=== PATIENT | male | born 1960 | race Caucasian/White ===

== ENCOUNTER → 2017-04-25 | Outpatient (CLI) | payer BC ==
--- NOTE | 2017-04-25 09:40 | FL ---
EXAMINATION TYPE: FL barium swallow DATE OF EXAM: 04/25/2017 CLINICAL HISTORY: Dysphagia TECHNIQUE: A double contrast esophagram is performed utilizing air and barium. A total of 2 minutes and 12 seconds of fluoroscopic time was utilized during procedure. COMPARISON: 11/12/2014 FINDINGS: The esophagus shows normal motility and emptying into the stomach in the gravity dependent position. However, in the gravity independent position there is stasis at the distal esophagus just p roximal to the gastroesophageal junction with delayed and emptying into the gastric fundus. Delayed m otility of approximately 1 to 3 seconds before emptying into the gastric fundus in the supine positio n with more severe delayed motility the lateral position as there is no propulsion through the gastro esophageal junction. Patient was then placed in the upright position and contrast readily flowed thro ugh the gastroesophageal junction with no evidence of stricture. No tertiary contractions were seen. No gastroesophageal reflux was present, however the incompletely passed contrast did spontaneously re fluxed to the level of the cervical esophagus in the gravity independent position. No evidence of hia chelsea hernia or stricture noted. IMPRESSION: 1. No evidence of stricture, extrinsic compression or hiatal hernia. No evidence of gastroesophageal reflux. 2. Delayed motility through the gastroesophageal junction in the gravity independent position with st asis and spontaneous reflux to the level of the cervical esophagus of the contrast that would not pas s through the gastroesophageal junction in the gravity independent portion of the exam.
== END ==
LOC: RADFLMAIN 07:46
PROVIDERS: ATTEND Surgery
DX: K21.9 Gastro-esophageal reflux disease without esophagitis (principal)
CPT/HCPCS: 74220

== ENCOUNTER 2017-05-05 07:48 | Day surgery (SDC) | payer BC ==
[2017-05-03 11:51] VITALS: BMI 27.0
[~2017-05-05 07:48] MED LIST: LACTATED RINGERS 1,000 ML IV SCH; LIDOCAINE 1% 20 ML VIAL (10MG/ML) FOR IV START INTRADERMA PRN
[2017-05-05 08:07] VITALS: RESP 16; TEMP 96.5
[2017-05-05] MEDS ORDERED: PROPOFOL 10 MG/ML 20 ML VIAL IV ONE (08:38)
--- NOTE | 2017-05-05 08:58 | P.GSHP ---
History of Present Illness H&P Date: 05/05/17 Chief Complaint: Diarrhea This is a 56-year-old male referred from Dr. Rossi. Patient has had complaints of diarrhea. He presents today for colonoscopy. Past Medical History Past Medical History: Atrial Fibrillation, Cancer, Thyroid Disorder Additional Past Medical History / Comment(s): FREQUENT DIARRHEA, HX OF THYROID CA, HX OF DIVERTICULOSIS, PAST HX OF AFIB, HAS HAD 8 OCCURANCES FROM [id number] , NONE SINCE. WAS REVERSED WITH MEDS, TINNITUS LEFT EAR History of Any Multi-Drug Resistant Organisms: None Reported Past Surgical History: Cholecystectomy, Hernia Repair, Orthopedic Surgery Additional Past Surgical History / Comment(s): SOLEDAD FUNDLAPLICATION, CARPAL TUNNEL RT. LEFT SHOULDER BICEP, TOTAL THYROIDECTOMY, HEMMOROIDECTOMY, ALFRED INGUINAL HERNIA Past Anesthesia/Blood Transfusion Reactions: Postoperative Nausea & Vomiting ( PONV) Smoking Status: Former smoker - Past Family History Brother(s) Family Medical History: Cancer Additional Family Medical History / Comment(s): PROSTATE Medications and Allergies Home Medications Medication Instructions Recorded Confirmed Type Levothyroxine Sodium [Synthroid] 125 mcg PO DAILY 11/17/15 05/05/17 History Allergies Allergy/AdvReac Type Severity Reaction Status Date / Time amoxicillin Allergy Rash/Hives Verified 05/05/17 08:11 azithromycin [From Zithromax] Allergy Unknown Verified 05/05/17 08:11 Cephalosporins Allergy Rash/Hives Verified 05/05/17 08:11 codeine Allergy Dyspnea Verified 05/05/17 08:11 erythromycin base Allergy Rash/Hives Verified 05/05/17 08:11 latex Allergy Rash/Hives Verified 05/05/17 08:11 morphine Allergy Dyspnea Verified 05/05/17 08:11 Surgical - Exam Vital Signs Temp Pulse Resp BP Pulse Ox 96.5 F L 75 16 146/82 98 05/05/17 08:06 05/05/17 08:06 05/05/17 08:06 05/05/17 08:06 05/05/17 08:06 - General well developed, no distress - Eyes PERRL - ENT normal pinna - Neck no masses - Respiratory normal expansion - Cardiovascular Rhythm: regular - Abdomen Abdomen: soft, non tender Assessment and Plan Plan: Diarrhea Change in bowel habits We'll perform colonoscopy
--- NOTE | 2017-05-05 09:10 | P.OP ---
Date of Procedure: 05/05/17 Preoperative Diagnosis: Diarrhea Change in bowel habits Postoperative Diagnosis: Normal colonoscopy Rectal biopsy pathology pending Procedure(s) Performed: Colonoscopy Implants: Anesthesia: MAC Surgeon: Joseph Swanson Pathology: other (Rectum) Condition: stable Disposition: PACU Indications for Procedure: Operative Findings: Description of Procedure: PROCEDURE: The patient was placed on the endoscopy table in the lateral position. Digital rectal examination was performed which revealed no abnormalities. The prostate was symmetrical without nodules. Flexible colonoscope was then placed in the patient's anus and passed throughout the entire colon. The ileocecal valve was visualized. The cecum, ascending, transverse, descending and sigmoid colon were normal. The rectum was normal as well. Due to the patient's symptoms of diarrhea. A biopsy of the rectum was performed. There were no masses, polyps or diverticula noted in the entire colon. SUMMARY OF FINDINGS: Normal colonoscopy. Rectal biopsy pathology pending
[2017-05-05 09:11] VITALS: PULSE 68
[2017-05-05 09:28] VITALS: BP 127/71
== END 2017-05-05 09:43 | disposition home or self-care (01) ==
LOC: ORWHC2ENDO 07:48
PROVIDERS: ATTEND Surgery
DX: R19.7 Diarrhea, unspecified (principal); E07.9 Disorder of thyroid, unspecified; Z87.891 Personal history of nicotine dependence; Z85.850 Personal history of malignant neoplasm of thyroid; Z79.899 Other long term (current) drug therapy; Z88.5 Allergy status to narcotic agent; Z88.0 Allergy status to penicillin; Z88.1 Allergy status to other antibiotic agents; Z91.040 Latex allergy status
CPT/HCPCS: 88305; 45380; J2704

== ENCOUNTER → 2018-10-20 | Outpatient (CLI) | payer BC ==
--- NOTE | 2018-10-20 15:44 | FL ---
EXAMINATION TYPE: FL barium swallow DATE OF EXAM: 10/20/2018 COMPARISON: 04/25/2017 HISTORY: Post Mykel fundoplication, increasing reflux TECHNIQUE: A double air contrast UGI study is performed. FINDINGS: Esophagus dilates to normal caliber has normal contour to the gastroesophageal junction. Esophageal j unction tapers normally through the expected Mykel fundoplication. There is some mild hesitancy of c ontrast passing through the Mykel fundoplication area. Complete emptying does occur. A few tertiary contractions were observed during the exam. There is incomplete stripping in the horizontal drinking position. IMPRESSIONS: 1. Mykel fundoplication appears intact with some hesitancy passing through the gastroesophageal junc tion.
== END | disposition home or self-care (01) ==
LOC: RADFLWHC 08:22
PROVIDERS: ATTEND Surgery
DX: K21.9 Gastro-esophageal reflux disease without esophagitis (principal); Z98.890 Other specified postprocedural states
CPT/HCPCS: 74220

== ENCOUNTER → 2018-10-25 | Day surgery (SDC) | payer BC ==
[2018-10-20 10:44] VITALS: BMI 27.3
[~2018-10-25] MED LIST changes: +LABETALOL 5 MG/ML VIAL MDV IVP ONE; +LIDOCAINE 1% INJ 10MG/ML (20 ML MDV) ONE; +PROPOFOL 10 MG/ML 20 ML VIAL IV ONE
[2018-10-25 08:51] VITALS: RESP 18; TEMP 974
--- NOTE | 2018-10-25 09:38 | P.GSHP ---
History of Present Illness H&P Date: 10/25/18 Chief Complaint: GERD This is a 58-year-old male who's had some complaints of GERD. Patient presents today for EGD. His recent esophagram shows no evidence of recurrent hiatal hernia. Past Medical History Past Medical History: Atrial Fibrillation, Cancer, GERD/Reflux, Thyroid Disorder Additional Past Medical History / Comment(s): PAC arrhythmia, thryoid cancer History of Any Multi-Drug Resistant Organisms: None Reported Past Surgical History: Cholecystectomy, Hernia Repair, Orthopedic Surgery, Tonsillectomy Additional Past Surgical History / Comment(s): daryl fundoplication, thyroidectomy, rt carpal tunnel, Past Anesthesia/Blood Transfusion Reactions: Postoperative Nausea & Vomiting ( PONV) Smoking Status: Former smoker - Past Family History Father Family Medical History: Cancer Additional Family Medical History / Comment(s): MELENOMA Brother(s) Family Medical History: Cancer Medications and Allergies Home Medications Medication Instructions Recorded Confirmed Type Levothyroxine Sodium [Synthroid] 125 mcg PO DAILY 11/17/15 10/25/18 History Propranolol [Inderal] 10 mg PO DAILY 10/20/18 10/25/18 History Allergies Allergy/AdvReac Type Severity Reaction Status Date / Time amoxicillin Allergy Rash/Hives Verified 10/20/18 10:33 azithromycin [From Zithromax] Allergy Rash/Hives Verified 10/20/18 10:33 Cephalosporins Allergy Rash/Hives Verified 10/20/18 10:33 codeine Allergy Dyspnea Verified 10/20/18 10:33 erythromycin base Allergy Rash/Hives Verified 10/20/18 10:33 hydromorphone [From Dilaudid] Allergy Nausea & Verified 10/20/18 10:51 Vomiting latex Allergy Rash/Hives Verified 10/20/18 10:33 morphine Allergy Dyspnea Verified 10/20/18 10:33 Surgical - Exam Vital Signs Temp Pulse Resp BP Pulse Ox 974 F H 70 18 139/82 96 10/25/18 08:42 10/25/18 08:42 10/25/18 08:42 10/25/18 08:42 10/25/18 08:42 - General well developed, well nourished, no distress - Eyes PERRL - ENT normal pinna - Neck no masses - Respiratory normal expansion - Cardiovascular Rhythm: regular - Abdomen Abdomen: soft, non tender Assessment and Plan Assessment: GERD. We'll perform EGD.
--- NOTE | 2018-10-25 09:51 | P.OP ---
Date of Procedure: 10/25/18 Preoperative Diagnosis: GERD Postoperative Diagnosis: Antral gastritis Procedure(s) Performed: EGD Anesthesia: MAC Surgeon: Joseph Swanson Pathology: other (Antrum) Condition: stable Disposition: PACU Description of Procedure: The patient's placed on the endoscopy table in the lateral position. He received IV sedation. The gastroscope placed oropharynx passed in the esophagus and stomach. Scope was then placed through the pylorus. The first and second portion of the duodenum appeared normal. The scope was then brought back the antrum this. Minimally inflamed. A biopsies performed. The scope was then retroflexed and the remainder of the stomach appeared normal. There is no evidence of a hiatal hernia. The GE junction was at 40 cm. The distal esophagus appeared normal. The proximal esophagus. Normal. Scope was withdrawn for patient.
[2018-10-25 10:11] VITALS: BP 137/81; PULSE 66
== END | disposition home or self-care (01) ==
LOC: ORWHC2ENDO 08:15
PROVIDERS: ATTEND Surgery
DX: K29.50 Unspecified chronic gastritis without bleeding (principal); K21.9 Gastro-esophageal reflux disease without esophagitis; I48.91 Unspecified atrial fibrillation; Z85.850 Personal history of malignant neoplasm of thyroid; Z87.891 Personal history of nicotine dependence; Z80.8 Family history of malignant neoplasm of other organs or systems; Z79.890 Hormone replacement therapy; E89.0 Postprocedural hypothyroidism; Z79.899 Other long term (current) drug therapy; Z88.5 Allergy status to narcotic agent; Z88.0 Allergy status to penicillin; Z88.1 Allergy status to other antibiotic agents; Z91.040 Latex allergy status
CPT/HCPCS: 43239; J2001; J2704; 88305

== ENCOUNTER 2019-10-26 11:32 | Day surgery (SDC) | payer BC ==
[2019-10-23 13:25] VITALS: BMI 27.2
[~2019-10-26 11:32] MED LIST changes: -LABETALOL 5 MG/ML VIAL MDV IVP ONE; -LIDOCAINE 1% 20 ML VIAL (10MG/ML) FOR IV START INTRADERMA PRN; -LIDOCAINE 1% INJ 10MG/ML (20 ML MDV) ONE; -PROPOFOL 10 MG/ML 20 ML VIAL IV ONE
[2019-10-26 12:02] VITALS: RESP 16; TEMP 97.5
[2019-10-26] MEDS ORDERED: LIDOCAINE 1% INJ 10MG/ML (20 ML MDV) ONE (12:26)
[2019-10-26] MEDS ORDERED: PROPOFOL 10 MG/ML 20 ML VIAL IV ONE (12:26)
--- NOTE | 2019-10-26 12:33 | P.GSHP ---
History of Present Illness H&P Date: 10/26/19 Chief Complaint: Epigastric pain This is a 59-year-old male who's had some complaints of epigastric pain. Patient rents today for EGD tonight for possible gastritis. Past Medical History Past Medical History: Atrial Fibrillation, GERD/Reflux, Thyroid Disorder Additional Past Medical History / Comment(s): 2004- episodes of A-Fib, indigestion,diarrhea, sour taste and scratchy throat, thyroid cancer, History of Any Multi-Drug Resistant Organisms: None Reported Past Surgical History: Adenoidectomy, Cholecystectomy, Hernia Repair, Orthopedic Surgery, Tonsillectomy Additional Past Surgical History / Comment(s): daryl fundoplication, thyroidectomy,hemorrhoidectomy, rt hand carpal tunnel, philippe inguinal hernia, Past Anesthesia/Blood Transfusion Reactions: Postoperative Nausea & Vomiting (PONV) Smoking Status: Former smoker - Past Family History Father Family Medical History: Cancer Additional Family Medical History / Comment(s): MELENOMA Brother(s) Family Medical History: Cancer Additional Family Medical History / Comment(s): PROSTATE Medications and Allergies Home Medications Medication Instructions Recorded Confirmed Type Levothyroxine Sodium [Synthroid] 125 mcg PO DAILY 11/17/15 10/23/19 History Propranolol [Inderal] 10 mg PO DAILY 10/20/18 10/26/19 History Omeprazole 20 mg PO DAILY 10/23/19 10/23/19 History Allergies Allergy/AdvReac Type Severity Reaction Status Date / Time amoxicillin Allergy Rash/Hives Verified 10/26/19 11:55 azithromycin [From Zithromax] Allergy Rash/Hives Verified 10/26/19 11:55 Cephalosporins Allergy Rash/Hives Verified 10/26/19 11:55 codeine Allergy Dyspnea Verified 10/26/19 11:55 erythromycin base Allergy Rash/Hives Verified 10/26/19 11:55 hydromorphone [From Dilaudid] Allergy Nausea & Verified 10/26/19 11:55 Vomiting latex Allergy Rash/Hives Verified 10/26/19 11:55 morphine Allergy Dyspnea Verified 10/26/19 11:55 Surgical - Exam Vital Signs Temp Pulse Resp BP Pulse Ox 97.5 F L 77 16 143/76 96 10/26/19 12:00 10/26/19 12:00 10/26/19 12:10/26/19 12:00 10/26/19 12:00 - General well developed, well nourished, no distress - Eyes PERRL, normal ocular movement - ENT normal pinna - Neck no masses - Respiratory normal expansion - Cardiovascular Rhythm: regular - Abdomen Abdomen: soft, non tender Assessment and Plan Assessment: Epigastric pain. We'll perform EGD to evaluate for possible gastritis
--- NOTE | 2019-10-26 12:42 | P.OP ---
Date of Procedure: 10/26/19 Preoperative Diagnosis: Epigastric pain Postoperative Diagnosis: Mild antral gastritis Procedure(s) Performed: EGD Anesthesia: MAC Surgeon: Joseph Swanson Pathology: other (Antrum) Condition: stable Disposition: PACU Description of Procedure: The patient's placed on the endoscopy table in the lateral position. He received IV sedation. The gastroscope placed oropharynx and passed in the esophagus and stomach. Scope was then placed through the pylorus. The first and second part of the duodenum appeared normal. Scope was brought back the antrum this was mildly inflamed. A biopsies performed. Scope was unretroflexed and remainder of the stomach appeared normal. There was no hiatal hernia. The GE junction was at 40 cm. The distal esophagus appeared normal. The proximal esophagus appeared normal. Scope was withdrawn for patient.
[2019-10-26 12:56] VITALS: BP 126/75; PULSE 72
== END 2019-10-26 13:34 | disposition home or self-care (01) ==
LOC: ORWHC2ENDO 11:32
PROVIDERS: ATTEND Surgery
DX: K29.70 Gastritis, unspecified, without bleeding (principal); K21.9 Gastro-esophageal reflux disease without esophagitis; I48.91 Unspecified atrial fibrillation; E07.9 Disorder of thyroid, unspecified; Z91.040 Latex allergy status; Z88.1 Allergy status to other antibiotic agents; Z88.5 Allergy status to narcotic agent; Z88.0 Allergy status to penicillin; Z87.891 Personal history of nicotine dependence; Z79.890 Hormone replacement therapy; Z79.899 Other long term (current) drug therapy; Z85.850 Personal history of malignant neoplasm of thyroid; Z90.49 Acquired absence of other specified parts of digestive tract; Z90.89 Acquired absence of other organs; Z98.890 Other specified postprocedural states; Z80.8 Family history of malignant neoplasm of other organs or systems; Z80.42 Family history of malignant neoplasm of prostate
CPT/HCPCS: 88305; 43239; J2001; J2704

== ENCOUNTER → 2024-01-04 | Outpatient (CLI) | payer MEDICARE, OTHER ==
--- NOTE | 2024-01-04 12:20 | FL ---
EXAMINATION TYPE: FL barium swallow DATE OF EXAM: 01/04/2024 CLINICAL INDICATION: 63-year-old male K21.9, GERD. History of previous Rasheed fundoplication in 2015 with worsening symptoms COMPARISON: None Fluoroscopy time: 2 min 28 sec 630.68 mGycm2 DAP dose 42 images obtained. FINDINGS: Patient status post C5-C7 ACDF. We note deep penetration with coating of the vocal folds without coug h reflex. Hypopharyngeal anatomy is preserved. The cervical and thoracic portions have a normal course and caliber. However, there is significant dy smotility with markedly blunted secondary stripping waves and stagnating contrast in the esophagus wh en the patient is prone/supine. Even when brought upright to promote passage of contrast with gravity , there is relative narrowing at the GE junction causing hesitancy and passage into the stomach. Post surgical change of prior hiatal hernia repair is noted here. The mucosa is normal and no persistent filling defect is encountered. No recurrent hiatal hernia. Unable to elicit any gastroesophageal reflux with Valsalva or positional maneuvers. IMPRESSION: 1. An episode of deep penetration with coating of the vocal folds without cough reflex. If clinically indicated, speech pathology can further evaluate. 2. Esophageal dysmotility with stagnating contrast in the esophagus when the patient is prone/supine and markedly blunted secondary stripping waves. 3. Relative narrowing at the GE junction at the site of patient's hiatal hernia repair, similar to pr ior exams. This results in additional hesitancy in passage of contrast into the stomach. 4. No recurrent hiatal hernia or gastroesophageal reflux seen.
== END | disposition home or self-care (01) ==
LOC: RADUSWWP 09:44
PROVIDERS: ATTEND Surgery
DX: K21.9 Gastro-esophageal reflux disease without esophagitis (principal); K22.4 Dyskinesia of esophagus
CPT/HCPCS: 74220

== ENCOUNTER → 2024-01-09 | Day surgery (SDC) | payer MEDICARE, OTHER ==
[2024-01-02 12:06] VITALS: BMI 27.3
[~2024-01-09] MED LIST changes: -LACTATED RINGERS 1,000 ML IV SCH; +LIDOCAINE 1% (10MG/ML) FOR IV START INTRADERMA PRN; +LIDOCAINE 1% INJ 10MG/ML (20 ML MDV) ONE; +PROPOFOL 10 MG/ML 20 ML VIAL IV ONE
[2024-01-09] MEDS: LACTATED RINGERS 1,000 ML IV SCH (10:25)
[2024-01-09 11:08] VITALS: TEMP 97.4
--- NOTE | 2024-01-09 11:51 | P.OP ---
Date of Procedure: 01/09/24 Preoperative Diagnosis: GERD Postoperative Diagnosis: antral gastritis Procedure(s) Performed: EGD Anesthesia: MAC Surgeon: Joseph Swanson Pathology: other (antrum) Condition: stable Disposition: PACU Description of Procedure: patient's placed on the endoscopy table in the lateral position. He received IV sedation. The gastroscope placed oropharynx passed in the esophagus and stomach. Scope some placed through the pylorus. The first and second portion of the duodenum appeared normal. scope was then brought back the antrum and this appeared mildly inflamed. This was biopsied with cold forcep. Scope was unretroflexed and remainder the stomach appeared normal. There was no hiatal hernia seen. The GE junction was at 40 cm per the distal esophagus appeared normal. The proximal esophagus appeared normal. Scope withdrawn for patient.
[2024-01-09 12:42] VITALS: BP 120/74; PULSE 66; RESP 14
== END ==
LOC: ORWHC2ENDO 10:15
PROVIDERS: ATTEND Surgery
DX: K29.50 Unspecified chronic gastritis without bleeding (principal); K21.9 Gastro-esophageal reflux disease without esophagitis; I10 Essential (primary) hypertension; I48.91 Unspecified atrial fibrillation; E07.9 Disorder of thyroid, unspecified; Z85.850 Personal history of malignant neoplasm of thyroid; Z90.49 Acquired absence of other specified parts of digestive tract; Z79.890 Hormone replacement therapy; Z79.82 Long term (current) use of aspirin; Z79.899 Other long term (current) drug therapy; Z98.890 Other specified postprocedural states; Z88.5 Allergy status to narcotic agent; Z88.6 Allergy status to analgesic agent; Z88.1 Allergy status to other antibiotic agents; Z88.8 Allergy status to other drugs, medicaments and biological substances; Z91.040 Latex allergy status
CPT/HCPCS: 88305; 43239; J2001; J2704

== ENCOUNTER → 2024-12-24 | Outpatient (CLI) | payer MEDICARE, OTHER ==
--- NOTE | 2024-12-24 13:00 | FL ---
EXAMINATION TYPE: FL UGI air w esophagus DATE OF EXAM: 12/24/2024 COMPARISON: Most recent modified barium swallow December 2023 CLINICAL INDICATION: Male, 64 years old with history of K21.9 GERD; PHH, history of epigastric pain a nd reflux-like symptoms for years. History of hiatal hernia repair surgery 10 years ago. History of t hyroidectomy. Recent neck surgery. Tightness in throat. Vocal cord irritation on ENT examination rece ntly. Patient feels food is getting stuck in upper esophagus. TECHNIQUE: A double contrast UGI study is performed. A total of 34 seconds of fluoroscopic time was utilized during procedure and 26 images obtained. Total dose area product (DAP) in uGy*m?, mGy*cm? ( or similar): n/p. FINDINGS: Water Project Manager image of the abdomen shows surgical changes epigastric region. Cholecystectomy clips are present. The esophagus shows satisfactory motility and emptying into the stomach. No evidence of recurrent fi xed hiatal hernia or stricture noted. No intraluminal mass. Surgical changes in the lower cervical sp ine are present over 3 levels. The stomach shows adequate distention. No significant gastroesophageal reflux was seen during real t winsome performance of this study. Suboptimal assessment of the entire stomach and duodenal sweep is not ed as I thought exam was only esophagram. IMPRESSION: Unremarkable esophagram. If there is still concern for stomach and duodenal sweep, this p ortion can be reexamined free of charge as I performed exam only focusing on the esophagus. [facility], , 12/24/2024 12:58 PM
== END | disposition home or self-care (01) ==
LOC: RADFLMAIN 08:17
PROVIDERS: ATTEND Surgery
DX: K21.9 Gastro-esophageal reflux disease without esophagitis (principal)
CPT/HCPCS: 74246

== ENCOUNTER → 2025-01-17 | Outpatient (CLI) | payer MEDICARE, OTHER ==
--- NOTE | 2025-01-17 09:52 | FL ---
No charge / no bill. EXAMINATION TYPE: FL UGI air w esophagus DATE OF EXAM: 01/17/2025 9:07 AM COMPARISON: 12/16/2024. CLINICAL INDICATION:Male, 64 years old with history of K21.9 GERD; TECHNIQUE: No charge / no bill. The procedure was explained and patient history elicited. All patient questions were answered prior to start of procedure. A customer sales specialist radiograph of the abdomen was also reviewed. Multiple fluoroscopic s pot images of the esophagus, stomach and duodenum were obtained following DAP: Not reported [id number] FINDINGS: Upper GI examination: The customer sales specialist abdominal radiograph demonstrates a normal bowel gas pattern without dilated loops of small or large bowel. There is no evidence for organomegaly or pneumoperitoneum. No abnormal calcificat ions. The visualized osseous structures are intact. The esophagus demonstrates normal primary and secondary peristalsis. There is some delayed emptying o f the esophagus worsened in prone/lying position. No obstructing mass visualized. Reflux of contrast into the stomach. The esophageal mucosa is smooth without evidence of focal stricture, ulceration, or abnormal outpouching. No gastroesophageal reflux disease was identified. No hernia was identified. The stomach and duodenum demonstrate a normal course and contour. There is no evidence of focal elsa felix or duodenal ulceration, stricture, or abnormal outpouching. IMPRESSION: No charge / no bill. 1. Postsurgical changes with minimal retained barium in the esophagus when patient was upright and m ore severe delayed emptying when the patient was lying prone. No evidence for obstruction. 2. No evidence for hernia. [facility], , 01/17/2025 9:49 AM
== END | disposition home or self-care (01) ==
LOC: RADFLMAIN 08:16
PROVIDERS: ATTEND Surgery
DX: K21.9 Gastro-esophageal reflux disease without esophagitis (principal); Z98.890 Other specified postprocedural states
CPT/HCPCS: 74246